=== PATIENT | male | born 1985 | race Caucasian/White ===

== ENCOUNTER 2022-09-04 20:44 | Emergency (ER) | payer SELFPAY ==
[~2022-09-04] VITALS: Ht 172.7 cm; Wt 74.8 kg
--- NOTE | 2022-09-04 20:53 | NUR ---
[facility] at bedside.
[2022-09-04] MEDS ORDERED: ONDANSETRON 4 MG/2 ML VIAL IV ONE (21:00)
[2022-09-04] MEDS ORDERED: IV NORMAL SALINE 1000 ML BAG IV ONE ×2 (21:00→21:15)
[2022-09-04] MEDS ORDERED: METOCLOPRAMIDE HCL 10 MG/2 ML VIAL IV ONE (21:15)
[2022-09-04] MEDS ORDERED: ACETAMINOPHEN 325 MG TABLET ONE (21:18)
[2022-09-04 21:26] LABS: HEMATOCRIT 39.9 % (36.7-47.1); MEAN CORPUSCULAR HEMOGLOBIN 31.2 uug (23.8-33.4); MEAN CORPUSCULAR VOLUME 90.9 fL (73.0-96.2); PLATELET COUNT (AUTO) 681 K/uL (152-348)
[2022-09-04 21:30] LABS: POTASSIUM 3.1 mmol/L (3.5-5.1)
[2022-09-04] MEDS ORDERED: ACETAMINOPHEN 325 MG TABLET PO ONE (21:30)
[2022-09-04 21:35] LABS: BILIRUBIN,TOTAL 0.2 mg/dL (0.2-1.0); MAGNESIUM 1.9 mg/dL (1.8-2.4); PHOSPHOROUS 2.2 mg/dL (2.5-4.9); TOTAL PROTEIN, SERUM 6.3 g/dL (6.4-8.2)
[2022-09-04 21:42] LABS: ACETAMINOPHEN < 2.0 ug/mL (10-30)
[2022-09-04 21:51] LABS: ETHANOL 295 MG/DL (0-0)
[2022-09-04] MEDS ORDERED: IV NORMAL SALINE 250 ML IV ONE (22:05)
[2022-09-04] MEDS ORDERED: SWABABLE VALVE TRANSFER SET EA MC ONE (22:05)
[2022-09-04] MEDS ORDERED: IOHEXOL 300MG/ML 100 ML INFUS..BTL ONE (22:05)
--- NOTE | 2022-09-04 22:15 | NUR ---
Pt out of ER for CT.
--- NOTE | 2022-09-04 22:34 | NUR ---
Pt back to ER from CT.
--- NOTE | 2022-09-04 23:40 | NUR ---
Called [facility] for higher level of care transfer: Trauma, spoke with Regulo, faxed facesheet and CT results to .
[2022-09-04] MEDS ORDERED: CEFTRIAXONE 1 G in IV DEXTROSE 5% 50 ML IV ONE (23:45)
[2022-09-04] MEDS ORDERED: CEFTRIAXONE /D5W 50ML IVPB **ER PYXIS IV ONE (23:59)
[2022-09-05] MEDS ORDERED: FENTANYL CITRATE 100 MCG/2 ML AMPUL ONE
[2022-09-05] MEDS ORDERED: FENTANYL CITRATE 100 MCG/2 ML AMPUL IV ONE
--- NOTE | 2022-09-05 00:05 | NUR ---
Received call back from [facility], pt accepted by Dr. Virk for Trauma Transfer.
[2022-09-05 00:10] LABS: *BILIRUBIN,URIN NEGATIVE (NEGATIVE); *BLOOD, URINE 3+ (NEGATIVE); *COLOR,URINE YELLOW (YELLOW); *KETONES,URINE TRACE (NEGATIVE); *UROBILINOGEN,URINE 0.2 E.U./dl (NORMAL); LEUKOCYTE ESTERASE ,URINE NEGATIVE (NEGATIVE); NITRITE, URINE NEGATIVE (NEGATIVE); UGLUCOSE NEGATIVE (NEGATIVE)
--- NOTE | 2022-09-05 00:22 | NUR ---
Called [facility] for transport to [facility] eta 30min.
[2022-09-05 00:27] LABS: *CLARITY,URINE HAZY (CLEAR)
[2022-09-05] MEDS ORDERED: IV LACTATED RINGERS SOLUTION 1,000 ML BAG IV ONE (00:30)
[2022-09-05] MEDS ORDERED: METRONIDAZOLE 500 MG/NS 100 ML PIGGYBACK IV ONE (00:30)
[2022-09-05] MEDS: POTASSIUM CHLORIDE 50 ML IV SCH ×3 (00:30→01:12)
[2022-09-05] MEDS ORDERED: POTASSIUM CHLORIDE 50 ML ONE (00:33)
[2022-09-05] MEDS ORDERED: METRONIDAZOLE 500 MG/NS 100ML 100 ML IV ONE (00:34)
[2022-09-05 00:43] LABS: *AMPHETAMINE, URINE NEGATIVE (NEGATIVE); *CANNABINOID, URINE NEGATIVE (NEGATIVE); *COCCAINE, URINE POSITIVE (NEGATIVE); *OPIATE, URINE NEGATIVE (NEGATIVE); *PHENCYCLIDINE SCREEN,URINE NEGATIVE (NEGATIVE)
--- NOTE | 2022-09-05 00:45 | NUR ---
[facility] arrived to ER to transport patient to [facility] for higher level of care transfer: Trauma. Report and documentation given to EMT.
--- NOTE | 2022-09-05 00:55 | NUR ---
Report given to Regulo [facility].
--- NOTE | 2022-09-05 01:10 | NUR ---
Patient wheelecd out of ER via gurney by [facility] ambulance to transfer to [facility]. Patient's personal belongings with him and vital signs stable.
--- NOTE | 2022-09-05 01:12 | NUR ---
Was unable to give IV antibiotics, potassium, and lactaded ringers due to patient being transported to [facility].
[2022-09-05 02:52] LABS: BACTERIA,URINE FEW /HPF (NONE SEEN); RBC,URINE TNTC /HPF (0-3); SQUAMOUS EPITHELIAL CELL,UR NONE SEEN /HPF (NONE SEEN)
== END 2022-09-05 01:21 | disposition short-term general hospital (02) ==
LOC: ER 20:47
DX: M54.50 Low back pain, unspecified (principal); V89.2XXA Person injured in unspecified motor-vehicle accident, traffic, initial encounter; Y92.410 Unspecified street and highway as the place of occurrence of the external cause; F10.129 Alcohol abuse with intoxication, unspecified; Y90.8 Blood alcohol level of 240 mg/100 ml or more; R94.8 Abnormal results of function studies of other organs and systems; D72.829 Elevated white blood cell count, unspecified; E87.20 Acidosis, unspecified; E87.0 Hyperosmolality and hypernatremia; R00.0 Tachycardia, unspecified; Z20.822 Contact with and (suspected) exposure to COVID-19
CPT/HCPCS: 80053; 81001; 83690; 83735; 84100; 85025; 85730; 86850; 86900; 86901; 84484; 36415; 93005; 71045; 70450; 72125; 74177; 99291; 96361; 83605; 80299; 80320 ×2; 80307; 87426; 96365; 96375; J0696; Q9967; J7040 ×2; J3490; J3480; J3010; A4663; G0480